=== PATIENT | male | born 1970 | race Caucasian/White ===

== ENCOUNTER 2018-06-22 20:50 | Emergency (ER) | payer SELFPAY ==
[~2018-06-22] VITALS: Ht 162.6 cm; Wt 70.5 kg
[2018-06-22] MEDS ORDERED: METF-445 PO (21:06)
[2018-06-22] MEDS ORDERED: SODIUM CHLORIDE 0.9% 2,000 ML IV ONE (21:20)
[2018-06-22 21:27] LABS: GLUCOSE,POINT OF CARE > 600 MG/DL (70-110)
[2018-06-22] MEDS ORDERED: INSULIN REGULAR, HUMAN 100 UNITS/ML IVP ONE (21:30)
[2018-06-22 21:41] LABS: BASOPHILS % (AUTO) 0.5 % (0.0-2.0); EOSINOPHILS % (AUTO) 1.9 % (1.0-6.0); HEMATOCRIT 43.3 % (41-53); HEMOGLOBIN 14.6 g/dL (13.5-17.5); LYMPHOCYTES # (AUTO) 2.4 K/uL (1.0-4.8); MEAN CORPUSCULAR HEMOGLOBIN 32.2 pg (26.0-34.0); MEAN CORPUSCULAR HGB CONC 33.7 G/dL (31.0-37.0); MEAN CORPUSCULAR VOLUME 96 fL (80-100); MONOCYTES # (AUTO) 0.4 K/uL (0.1-1.0); MONOCYTES % (AUTO) 7.6 % (2.0-9.0); NEUTROPHILS # (AUTO) 2.9 K/uL (1.8-7.7); PLATELET COUNT (AUTO) 310 K/uL (150-450); RED BLOOD CELL COUNT(AUTO) 4.53 MIL/uL (4.50-5.90); RED CELL DISTRIBUTION WIDTH 13.1 % (11.5-14.5)
[2018-06-22 21:47] LABS: LIPASE 164 U/L (73-393)
[2018-06-22 21:54] LABS: ALANINE AMINOTRANSFERASE 23 U/L (12-78); ALBUMIN 4.7 g/dL (3.4-5.0); ALKALINE PHOSPHATASE 61 U/L (46-116); ANION GAP 9 mmol/L (8-16); ASPARTATE AMINOTRANSFERASE 9 U/L (15-37); BILIRUBIN,TOTAL 0.5 mg/dL (0.1-1.0); CALCIUM, TOTAL 10.2 mg/dL (8.8-10.5); CARBON DIOXIDE 29 mmol/L (22-29); CHLORIDE 93 mmol/L (98-107); CREATININE 1.12 mg/dL (0.60-1.30); GLOMERULAR FILTR. RATE CALC > 60 mL/min (>60); POTASSIUM 4.7 mmol/L (3.5-5.1); SODIUM SERUM 131 mmol/L (136-145); UREA NITROGEN, BLOOD 20 mg/dL (7-18)
[2018-06-22 21:56] LABS: GLUCOSE,RANDOM 634 mg/dL (70-110)
[2018-06-22 21:58] LABS: ACETONE,BLOOD TRACE (NEGATIVE)
[2018-06-22 22:05] LABS: B-TYPE NATRIURETIC PEPTIDE 7 pg/mL (0-100)
[2018-06-22 22:51] LABS: GLUCOSE,POINT OF CARE 503 MG/DL (70-110)
[2018-06-22 23:09] LABS: APPEARANCE,URINE CLEAR (CLEAR); BILIRUBIN,URINE NEGATIVE (NEGATIVE); GLUCOSE, URINE (UA) >=1000 mg/dL (NEGATIVE); KETONES,URINE TRACE mg/dL (NEGATIVE); LEUKOCYTE ESTERASE ,URINE NEGATIVE (NEGATIVE); NITRATE,URINE NEGATIVE (NEGATIVE); OCCULT BLOOD,URINE NEGATIVE (NEGATIVE); PH,URINE 5.5 (5.0-8.0); PROTEIN,URINE NEGATIVE (NEGATIVE); UROBILINOGEN,URINE 0.2 mg/dL (<=1.0)
[2018-06-22 23:14] LABS: BACTERIA,URINE Few /HPF (None Seen); RBC,URINE None Seen /HPF (0-2); WBC,URINE None Seen /HPF (0-5)
[2018-06-23 00:15] LABS: GLUCOSE,POINT OF CARE 297 MG/DL (70-110)
[2018-06-23 00:51] LABS: GLUCOSE,POINT OF CARE 228 MG/DL (70-110)
[2018-06-23 02:19] VITALS: BP 96/61
[2018-06-23 02:34] LABS: GLUCOSE,POINT OF CARE 278 MG/DL (70-110)
== END 2018-06-23 02:31 | disposition home or self-care (01) ==
LOC: EMS 20:50
DX: E11.65 Type 2 diabetes mellitus with hyperglycemia (principal); Z79.84 Long term (current) use of oral hypoglycemic drugs
CPT/HCPCS: 36415; 80053; 81001; 82009; 82962; 83690; 83880; 84484; 85025; 96360; 96361; 96374; 99283; J1815; J7030